=== PATIENT | female | born 1990 | race Hispanic/Latino ===

== ENCOUNTER 2017-10-15 09:43 | Emergency (ER) | payer SELFPAY ==
[~2017-10-15] VITALS: Ht 165.1 cm; Wt 76.7 kg
== END 2017-10-15 10:43 | disposition home or self-care (01) ==
LOC: ED 09:43
DX: M25.511 Pain in right shoulder (principal); M54.2 Cervicalgia; M79.601 Pain in right arm

== ENCOUNTER 2020-01-02 14:59 | Emergency (ER) | payer OTHER ==
[~2020-01-02] VITALS: Ht 165.1 cm; Wt 82.5 kg
[2020-01-02] MEDS ORDERED: CYCLOBENZAPRINE10 MG PO (15:39)
== END 2020-01-02 15:55 | disposition home or self-care (01) ==
LOC: ED 14:59
DX: M43.6 Torticollis (principal)
CPT/HCPCS: 99283

== ENCOUNTER 2022-10-29 00:03 | Emergency (ER) | payer OTHER ==
[~2022-10-29] VITALS: Ht 165.1 cm; Wt 82.5 kg
[~2022-10-29 00:03] MED LIST: CYCLOBENZAPRINE10 MG PO
[2022-10-29] MEDS ORDERED: LISINOPRIL5 MG PO (00:21)
[2022-10-29] MEDS ORDERED: MELOXICAM7.5 MG PO (01:52)
[2022-10-29] MEDS ORDERED: HYDROCODON-ACE1 EA10 PO (01:52)
== END 2022-10-29 03:48 | disposition home or self-care (01) ==
LOC: ED 00:03
DX: S06.9X1A Unspecified intracranial injury with loss of consciousness of 30 minutes or less, initial encounter (principal); S16.1XXA Strain of muscle, fascia and tendon at neck level, initial encounter; S29.012A Strain of muscle and tendon of back wall of thorax, initial encounter; M54.50 Low back pain, unspecified; W00.0XXA Fall on same level due to ice and snow, initial encounter; Y99.0 Civilian activity done for income or pay; Z79.899 Other long term (current) drug therapy
CPT/HCPCS: 70450; 72070; 72100; 72125; 84703; 96372; 99284-25; A9270; J1885; J3360